=== PATIENT | female | born 1995 | race Two or more races ===

== ENCOUNTER 2020-12-24 11:38 | Outpatient (CLI) | payer BC | END 2020-12-24 23:59 | disposition home or self-care (01) | LOC: STAR 11:38 | PROVIDERS: ATTEND Family Medicine | DX: Z20.822 Contact with and (suspected) exposure to COVID-19 (principal) | CPT/HCPCS: U0003 ==

== ENCOUNTER 2020-12-29 12:28 | Day surgery (SDC) | payer BC ==
[~2020-12-29] VITALS: Ht 154.9 cm; Wt 58.0 kg
[2020-12-29 13:12] LABS: BASOPHILS % (AUTO) 1 % (0-1); EOSINOPHILS % (AUTO) 1 % (1-7); LYMPHOCYTES % (AUTO) 31 % (22-44); MEAN CORPUSCULAR HEMOGLOBIN 30.1 pg (27.0-34.8); MEAN CORPUSCULAR HGB CONC 34.3 g/dL (32.4-35.8); MEAN PLATELET VOLUME 7.8 fL (7.4-10.4); MONOCYTES % (AUTO) 5 % (2-9); NEUTROPHILS % (AUTO) 62 % (42-75); PLATELET COUNT 400 x10^3/uL (130-400); RED BLOOD COUNT 4.53 x10^6/uL (3.82-5.3); RED CELL DISTRIBUTION WIDTH 12.8 % (9.6-15.2)
[2020-12-29 13:13] LABS: MD NO
[2020-12-29] MEDS ORDERED: NONE PER PT (13:29)
[2020-12-29 13:30] LABS: ALBUMIN 4.2 g/dL (3.4-5.0); ANION GAP 4 mmol/L (5-15); CHLORIDE 110 mmol/L (98-107)
[2020-12-29] MEDS ORDERED: CHLORHEXIDINE 15 ML UDC MM ONE (13:30)
[2020-12-29] MEDS ORDERED: EPHEDRINE 50 MG/ML, 1ML IVPush PRN (13:30)
[2020-12-29] MEDS ORDERED: HYDROmorphone 1 MG/ML, 1ML INJ IVPush PRN (13:30)
[2020-12-29] MEDS ORDERED: OXYcodone 5 MG/5 ML ORAL.SOL UDC PO PRN (13:30)
[2020-12-29] MEDS ORDERED: hydrALAzine 20 MG/ML, 1ML IV PRN (13:30)
[2020-12-29] MEDS ORDERED: ONDANSETRON 2MG/ML, 2ML IVPush PRN (13:30)
[2020-12-29] MEDS ORDERED: ACETAMINOPHEN 500 MG TABLET PO ONE (13:30)
[2020-12-29] MEDS ORDERED: LACTATED RINGERS 1,000 ML IV SCH (13:30)
[2020-12-29] MEDS ORDERED: PROMETHAZINE 25 MG/ML, 1ML IVPush PRN (13:30)
[2020-12-29] MEDS ORDERED: LABETALOL 5MG/ML, 20ML IV PRN (13:30)
[2020-12-29 13:38] LABS: ALANINE AMINOTRANSFERASE 38 U/L (12-78); ALKALINE PHOSPHATASE 61 U/L (45-117); BILIRUBIN,TOTAL 0.8 mg/dL (0.2-1.0); CALCIUM 9.3 mg/dL (8.5-10.1); CREATININE 0.82 mg/dL (0.55-1.02); TOTAL PROTEIN 8.1 g/dL (6.4-8.2)
[2020-12-29 14:02] LABS: HCG UR SG 1.022 (1.003-1.030)
[2020-12-29 14:26] VITALS: BP 116/74
[2020-12-29] MEDS ORDERED: FLUORESCEIN SODIUM 500 MG/5 ML ONE (14:33)
[2020-12-29] MEDS ORDERED: BUPIVACAINE/PF 0.25% ONE (14:33)
[2020-12-29] MEDS ORDERED: FENTANYL PF 250 MCG/5ML ONE (14:38)
[2020-12-29] MEDS ORDERED: MIDAZOLAM 1 MG/ML, 2ML ONE (14:38)
[2020-12-29] MEDS ORDERED: SUCCINYLCHOLINE 20 MG/ML, 10ML ONE (14:41)
[2020-12-29] MEDS ORDERED: ONDANSETRON 2MG/ML, 2ML ONE (14:41)
[2020-12-29] MEDS ORDERED: PROPOFOL 10 MG/ML, 20ML ONE (14:41)
[2020-12-29] MEDS ORDERED: ROCURONIUM 10MG/ML,5ML ONE (14:41)
[2020-12-29] MEDS ORDERED: CEFAZOLIN 1,000 MG ONE (14:41)
[2020-12-29] MEDS ORDERED: DEXAMETHASONE 4 MG/ML, 1ML ONE (14:41)
[2020-12-29] MEDS ORDERED: LIDOCAINE-MPF 2% ,5ML ONE (14:41)
[2020-12-29] MEDS ORDERED: KETOROLAC 30 MG/1 ML ONE (14:41)
[2020-12-29] MEDS ORDERED: SUGAMMADEX 200 MG/2 ML IVPush ONE (14:41)
[2020-12-29] MEDS ORDERED: FENTANYL PF 100 MCG/2ML ONE (16:44)
[2020-12-29] MEDS ORDERED: OXYcodone 5 MG/5 ML ORAL.SOL UDC ONE (16:44)
[2020-12-29] MEDS: FENTANYL PF 100 MCG/2ML IV PRN ×2 (16:49→16:54)
[2020-12-29 19:07] LABS: BASOPHILS % (AUTO) 0 % (0-1); EOSINOPHILS % (AUTO) 0 % (1-7); LYMPHOCYTES % (AUTO) 8 % (22-44); MEAN CORPUSCULAR HEMOGLOBIN 29.9 pg (27.0-34.8); MEAN CORPUSCULAR HGB CONC 34.2 g/dL (32.4-35.8); MEAN PLATELET VOLUME 7.8 fL (7.4-10.4); MONOCYTES % (AUTO) 1 % (2-9); NEUTROPHILS % (AUTO) 91 % (42-75); PLATELET COUNT 331 x10^3/uL (130-400); RED CELL DISTRIBUTION WIDTH 12.8 % (9.6-15.2)
[2020-12-29 19:32] LABS: MD SCAN
[2020-12-29] MEDS ORDERED: IBUPROFEN 600 MG TABLET ONE (20:38)
== END 2020-12-29 20:45 | disposition home or self-care (01) ==
LOC: OUT 12:28
PROVIDERS: ATTEND Obstetrics & Gynecology
DX: N87.1 Moderate cervical dysplasia (principal); Z79.899 Other long term (current) drug therapy; Z90.49 Acquired absence of other specified parts of digestive tract
CPT/HCPCS: 36415; 58262; 80053; 81025; 85025; 86850; 86900; 88307; J0330; J0690; J1100; J1885; J2250; J2405; J2704; J3010; J7120